=== PATIENT | female | born 1980 | race Caucasian/White ===

== ENCOUNTER 2020-10-08 07:40 | Emergency (ER) | payer OTHER ==
--- NOTE | 2020-10-08 07:47 | ERPHSYRPT ---
- History of Present Illness Time Seen by Provider: 10/08/20 07:46 Source: patient Exam Limitations: no limitations Physician History: This is a 39-year-old white female who is a smoker and presents with 5-day history of worsening cough. Patient has had diarrhea and some myalgias arthralgias. She is had no vomiting. She has no significant abdominal pain. Patient was seen at [facility] emergency department yesterday. A chest x-ray was performed and reviewed which showed some linear opacities in the bilateral lower lung barbosa. She also had a COVID-19 outpatient test performed. There is no results back at this time. She has had no fevers. Patient states that she just feels poorly overall. She was sent home with a prescription for Zithromax and prednisone and she took a single dose of each 1 of those medications prior to coming in to our facility. Timing/Duration: day(s) (5) Cough Quality/Degree: moderate Possible Cause: no prior episodes Modifying Factors: Improves With: coughing Associated Symptoms: chest pain/soreness, cough, muscle aches (From coughing), sore throat, No fever, No chills, No shortness of breath Allergies/Adverse Reactions: No Known Drug Allergies Allergy (Unverified 10/08/20 08:13) Home Medications: Azithromycin 250 mg [Zithromax 250 MG TABLET] 1 ea DAILY 10/08/20 [History] Hydrochlorothiazide 25 mg [hydroDIURIL 25 MG] 1 ea DAILY 10/08/20 [History] Losartan Potassium 50 mg [Cozaar 50 MG] 1 ea DAILY 10/08/20 [History] Methylprednisolone Packet [Medrol Dosepack] 1 ea DAILY 10/08/20 [History] Sertraline HCl 1 ea DAILY 10/08/20 [History] Travel Risk - International Travel Have you traveled outside of the country in past 3 weeks: No - Coronavirus Screening Are you exhibiting any of the following symptoms?: Yes Symptoms: Cough: New Onset, Headaches/Body Aches/Fatigue Close contact with a COVID-19 positive Pt in past 14-21 Days: No - Review of Systems Constitutional: No Symptoms Eyes: No Symptoms Ears, Nose, & Throat: No Symptoms Respiratory: Cough Cardiac: No Symptoms Abdominal/Gastrointestinal: No Symptoms Genitourinary Symptoms: No Symptoms Musculoskeletal: Arthralgias, Myalgias Skin: No Symptoms Neurological: No Symptoms Psychological: No Symptoms Endocrine: No Symptoms Hematologic/Lymphatic: No Symptoms Immunological/Allergic: No Symptoms All Other Systems: Reviewed and Negative - Past Medical History Pertinent Past Medical History: Yes - Past Surgical History Past Surgical History: Yes - Nursing Vital Signs Nursing Vital Signs: Initial Vital Signs Temperature 97.0 F 10/08/20 07:52 Pulse Rate 90 10/08/20 07:52 Respiratory Rate 18 10/08/20 07:52 Blood Pressure 151/95 10/08/20 07:52 O2 Sat by Pulse Oximetry 100 10/08/20 07:52 Pain Scale Pain Intensity 4 - Physical Exam General Appearance: mild distress, alert, anxiety Eye Exam: PERRL/EOMI, eyes nml inspection Ears, Nose, Throat Exam: normal ENT inspection, TM abnormal (L) Neck Exam: normal inspection, non-tender, supple, full range of motion Respiratory Exam: normal breath sounds, lungs clear, airway intact, No chest tenderness, No respiratory distress Cardiovascular Exam: regular rate/rhythm, normal heart sounds, normal peripheral pulses Gastrointestinal/Abdomen Exam: soft, normal bowel sounds, No tenderness Pelvic Exam: not done Rectal Exam: not done Back Exam: normal inspection, normal range of motion, No CVA tenderness, No vertebral tenderness Extremity Exam: normal inspection, normal range of motion, pelvis stable Neurologic Exam: alert, oriented x 3, cooperative, quality audit representative II-XII nml as tested, nml cerebellar function, nml station & gait, sensation nml Skin Exam: normal color, warm, dry Lymphatic Exam: No adenopathy SpO2 Interpretation: normal O2 Delivery: Room Air - Course Nursing assessment & vital signs reviewed: Yes Ordered Tests: Active Orders 24 hr Category Date Time Status EKG-ER Only STAT Care 10/08/20 08:03 Active IV Insertion STAT Care 10/08/20 08:03 Active Pulse Oximetry (ED) STAT Care 10/08/20 08:03 Active BLOOD CULTURE Stat Lab 10/08/20 07:55 Received CBC W DIFF Stat Lab 10/08/20 07:55 Completed CMP Stat Lab 10/08/20 08:30 Completed D-DIMER QUANTITATIVE Stat Lab 10/08/20 07:55 Completed INFLUENZA A+B YAJAIRA Stat Lab 10/08/20 07:55 Completed Lactic Acid Stat Lab 10/08/20 08:26 Completed NT PRO BNP Stat Lab 10/08/20 07:55 Completed TROPONIN Q3H Lab 10/08/20 07:55 Completed TROPONIN Q3H Lab 10/08/20 11:15 Ordered TROPONIN Q3H Lab 10/08/20 14:15 Ordered TROPONIN Q3H Lab 10/08/20 17:15 Ordered TROPONIN Q3H Lab 10/08/20 20:15 Ordered Respiratory MDI STAT RT 10/08/20 08:40 Active Respiratory Therapy Assessment DAILY RT 10/08/20 08:39 Active Medication Summary Discontinued Medications Generic Name Dose Route Start Last Admin Trade Name Freq PRN Reason Stop Dose Admin Hydrocodone Bitart/Acetaminophen Confirm 10/08/20 08:03 Hydrocodone-Acetamin 2.5-108/5 Ml Solution Administered 10/08/20 08:04 Dose 15 ml .ROUTE .STK-MED ONE Hydrocodone Bitart/Acetaminophen 15 ml 10/08/20 08:04 10/08/20 08:11 Hydrocodone-Acetamin 2.5-108/5 Ml Solution PO 10/08/20 08:05 15 ml STAT STA Administration Albuterol Sulfate 4 puff 10/08/20 08:38 10/08/20 08:15 Ventolin Common Canister IH 10/08/20 08:39 4 puff STAT ONE Administration Ceftriaxone Sodium/Dextrose 1 g in 50 mls @ 100 mls/hr 10/08/20 08:57 10/08/20 09:04 Rocephin 1 Gm-D5w 50 Ml Bag IV 10/08/20 09:26 200 ml/hr STAT STA 200 mls/hr Administration Ceftriaxone Sodium/Dextrose Confirm 10/08/20 09:03 Rocephin 1 Gm-D5w 50 Ml Bag Administered 10/08/20 09:04 Dose 1 g in 50 mls @ ud IV .STK-MED ONE Methylprednisolone Sodium Succinate Confirm 10/08/20 08:04 Solu-Medrol 125 Mg Administered 10/08/20 08:05 Dose 125 mg .ROUTE .STK-MED ONE Methylprednisolone Sodium Succinate 125 mg 10/08/20 08:03 10/08/20 08:11 Solu-Medrol 125 Mg IV 10/08/20 08:04 125 mg STAT ONE Administration Lab/Rad Data: Laboratory Result Diagrams 10/08/20 07:55 10/08/20 08:30 Laboratory Results 10/08/20 10/08/20 10/08/20 Range/Units 08:30 08:26 07:55 WBC (4.0-10.5) K/mm3 RBC (4.1-5.4) M/mm3 Hgb (12.0-16.0) gm/dl Hct (35-47) % MCV (78-100) fl MCH (26-32) pg MCHC (32-36) g/dl RDW (11.5-14.0) % Plt Count (150-450) K/mm3 MPV (7.5-11.0) fl Gran % (36.0-66.0) % Eos # (Auto) (0-0.5) Absolute Lymphs (auto) (1.0-4.6) Absolute Monos (auto) (0.0-1.3) Lymphocytes % (24.0-44.0) % Monocytes % (0.0-12.0) % Eosinophils % (0.00-5.0) % Basophils % (0.0-0.4) % Absolute Granulocytes (1.4-6.9) Basophils # (0-0.4) D-Dimer (215-500) ng/mL Sodium 136 L (137-145) mmol/L Potassium 3.8 (3.5-5.1) mmol/L Chloride 105 (98-107) mmol/L Carbon Dioxide 20 L (22-30) mmol/L Anion Gap 15.8 H (5-15) MEQ/L BUN 18 H (7-17) mg/dL Creatinine 0.61 (0.52-1.04) mg/dL Estimated GFR > 60.0 ML/MIN Glucose 106 (74-106) mg/dL Lactic Acid 1.5 (0.4-2.0) Calcium 10.1 (8.4-10.2) mg/dL Total Bilirubin 0.30 (0.2-1.3) mg/dL AST 36 (14-36) U/L ALT 36 H (0-35) U/L Alkaline Phosphatase 54 (38-126) U/L Troponin I < 0.012 (0.000-0.034) ng/mL NT-Pro-B Natriuret Pep (0-450) pg/mL Serum Total Protein 8.0 (6.3-8.2) g/dL Albumin 4.8 (3.5-5.0) g/dL Influenza Type A Ag (NEGATIVE) Influenza Type B Ag (NEGATIVE) 10/08/20 10/08/20 10/08/20 Range/Units 07:55 07:55 07:55 WBC (4.0-10.5) K/mm3 RBC (4.1-5.4) M/mm3 Hgb (12.0-16.0) gm/dl Hct (35-47) % MCV (78-100) fl MCH (26-32) pg MCHC (32-36) g/dl RDW (11.5-14.0) % Plt Count (150-450) K/mm3 MPV (7.5-11.0) fl Gran % (36.0-66.0) % Eos # (Auto) (0-0.5) Absolute Lymphs (auto) (1.0-4.6) Absolute Monos (auto) (0.0-1.3) Lymphocytes % (24.0-44.0) % Monocytes % (0.0-12.0) % Eosinophils % (0.00-5.0) % Basophils % (0.0-0.4) % Absolute Granulocytes (1.4-6.9) Basophils # (0-0.4) D-Dimer 320 (215-500) ng/mL Sodium (137-145) mmol/L Potassium (3.5-5.1) mmol/L Chloride (98-107) mmol/L Carbon Dioxide (22-30) mmol/L Anion Gap (5-15) MEQ/L BUN (7-17) mg/dL Creatinine (0.52-1.04) mg/dL Estimated GFR ML/MIN Glucose (74-106) mg/dL Lactic Acid (0.4-2.0) Calcium (8.4-10.2) mg/dL Total Bilirubin (0.2-1.3) mg/dL AST (14-36) U/L ALT (0-35) U/L Alkaline Phosphatase (38-126) U/L Troponin I (0.000-0.034) ng/mL NT-Pro-B Natriuret Pep 22.2 (0-450) pg/mL Serum Total Protein (6.3-8.2) g/dL Albumin (3.5-5.0) g/dL Influenza Type A Ag NEGATIVE (NEGATIVE) Influenza Type B Ag NEGATIVE (NEGATIVE) 10/08/20 Range/Units 07:55 WBC 10.4 (4.0-10.5) K/mm3 RBC 5.08 (4.1-5.4) M/mm3 Hgb 13.8 (12.0-16.0) gm/dl Hct 42.6 (35-47) % MCV 83.9 (78-100) fl MCH 27.2 (26-32) pg MCHC 32.4 (32-36) g/dl RDW 13.4 (11.5-14.0) % Plt Count 215 (150-450) K/mm3 MPV 11.8 H (7.5-11.0) fl Gran % 69.5 H (36.0-66.0) % Eos # (Auto) 0.22 (0-0.5) Absolute Lymphs (auto) 2.05 (1.0-4.6) Absolute Monos (auto) 0.86 (0.0-1.3) Lymphocytes % 19.8 L (24.0-44.0) % Monocytes % 8.3 (0.0-12.0) % Eosinophils % 2.1 (0.00-5.0) % Basophils % 0.3 (0.0-0.4) % Absolute Granulocytes 7.21 H (1.4-6.9) Basophils # 0.03 (0-0.4) D-Dimer (215-500) ng/mL Sodium (137-145) mmol/L Potassium (3.5-5.1) mmol/L Chloride (98-107) mmol/L Carbon Dioxide (22-30) mmol/L Anion Gap (5-15) MEQ/L BUN (7-17) mg/dL Creatinine (0.52-1.04) mg/dL Estimated GFR ML/MIN Glucose (74-106) mg/dL Lactic Acid (0.4-2.0) Calcium (8.4-10.2) mg/dL Total Bilirubin (0.2-1.3) mg/dL AST (14-36) U/L ALT (0-35) U/L Alkaline Phosphatase (38-126) U/L Troponin I (0.000-0.034) ng/mL NT-Pro-B Natriuret Pep (0-450) pg/mL Serum Total Protein (6.3-8.2) g/dL Albumin (3.5-5.0) g/dL Influenza Type A Ag (NEGATIVE) Influenza Type B Ag (NEGATIVE) - Progress Progress: improved, re-examined Air Movement: good Progress Note: 10/08/20 09:19 Patient states that she is feeling better. Medical decision making: This patient presents with cough. She is feeling better with an intravenous bolus of Solu-Medrol, Ventolin inhaler treatment and intravenous antibiotic of Rocephin. In addition, the patient received hydrocodone elixir for her cough. She is oxygenating, on room air, 98 to 100%. Her vital signs are stable. Patient is afebrile. Her D-dimer is normal as is her BNP and troponin level. She will be discharged home with instructions to continue her methylprednisolone and Zithromax antibiotic prescription. We will add a Ventolin inhaler prescription as well as a prescription for hydrocodone elixir. Patient agrees with this plan. Blood Culture(s) Obtained: Yes Antibiotics given: Yes Counseled pt/family regarding: lab results, diagnosis, need for follow-up - Departure Departure Disposition: Home Clinical Impression: Infiltrate of lung present on chest x-ray Condition: Stable Critical Care Time: No Referrals: MELVA NG BLOCK TRIMMER [Primary Care Provider] - Additional Instructions: Drink plenty fluids. Avoid cigarette smoke and any kind of smoke inhalation. Continue your Zithromax and steroid treatment. Obtain your prescriptions for a Ventolin inhaler and hydrocodone cough medicine. Continue quarantining yourself until you receive the results of your COVID-19 test. Return to the emergency department if your symptoms worsen. Follow-up with your primary care physician as needed Prescriptions: Hydrocodone/Acetaminophen [Hydrocodone-Acetamn 7.5-325/15] 10 ml PO Q8H PRN PRN #120 solution MDD 30 ml PRN Reason: Cough Albuterol 8 gm Mdi Hfa [Ventolin Hfa MDI] 8 gm IH Q4H #1 [email or web address]
[2020-10-08] MEDS ORDERED: HYDROCODONE-ACETAMIN 2.5-108/5 ML SOLUTION ONE (08:03)
[2020-10-08] MEDS ORDERED: solu-MEDROL 125 MG IV ONE (08:03)
[2020-10-08] MEDS ORDERED: HYDROCODONE-ACETAMIN 2.5-108/5 ML SOLUTION PO STA (08:04)
[2020-10-08] MEDS ORDERED: solu-MEDROL 125 MG ONE (08:04)
[2020-10-08] MEDS ORDERED: VENTOLIN COMMON CANISTER IH ONE (08:38)
[2020-10-08 08:39] LABS: Absolute Neutrophil Ct (ANC) 7.21 (1.4-6.9); BASOPHIL % 0.3 % (0.0-0.4); Basophil (Absolute #) 0.03 (0-0.4); Eosinophil % 2.1 % (0.00-5.0); Eosinophil (Absolute #) 0.22 (0-0.5); Hematocrit 42.6 % (35-47); Hemoglobin 13.8 gm/dl (12.0-16.0); Lymphocyte (Absolute #) 2.05 (1.0-4.6); Lymphocytes % 19.8 % (24.0-44.0); Mean Cell Volume 83.9 fl (78-100); Mean Corpuscular Hemoglobin 27.2 pg (26-32); Mean Corpuscular Hgb Concent. 32.4 g/dl (32-36); Mean Platelet Volume 11.8 fl (7.5-11.0); Monocyte (Absolute #) 0.86 (0.0-1.3); Monocytes % 8.3 % (0.0-12.0); Neutrophil % 69.5 % (36.0-66.0); Platelet Count 215 K/mm3 (150-450); Red Blood Count 5.08 M/mm3 (4.1-5.4); Red Cell Distribution Width 13.4 % (11.5-14.0); White Blood Count 10.4 K/mm3 (4.0-10.5)
[2020-10-08 08:50] LABS: INFLUENZA A NEGATIVE (NEGATIVE); INFLUENZA B NEGATIVE (NEGATIVE)
[2020-10-08] MEDS ORDERED: ROCEPHIN 1 Gm-D5w 50 ml Bag** 1 G/50 ML IVPB IV STA (08:57)
[2020-10-08] MEDS ORDERED: ROCEPHIN 1 Gm-D5w 50 ml Bag** 1 G/50 ML IVPB IV ONE (09:03)
[2020-10-08 09:13] VITALS: BP 130/79; PULSE 65; O2SAT 96
[2020-10-08 09:13] LABS: ALBUMIN 4.8 g/dL (3.5-5.0); ALKALINE PHOSPHATASE 54 U/L (38-126); ANION GAP 15.8 MEQ/L (5-15); BLOOD UREA NITROGEN 18 mg/dL (7-17); CHLORIDE 105 mmol/L (98-107); Calcium 10.1 mg/dL (8.4-10.2); Carbon Dioxide 20 mmol/L (22-30); Creatinine 1 0.61 mg/dL (0.52-1.04); EST GLOMERULAR FILTRATION RATE > 60.0 ML/MIN; Glucose 106 mg/dL (74-106); Potassium 3.8 mmol/L (3.5-5.1); SGOT/AST 36 U/L (14-36); SGPT/ALT 36 U/L (0-35); SODIUM 136 mmol/L (137-145)
== END 2020-10-08 09:52 | disposition home or self-care (01) ==
LOC: ED 07:40
DX: R91.8 Other nonspecific abnormal finding of lung field (principal); R05 Cough; M79.18 Myalgia, other site; J02.9 Acute pharyngitis, unspecified; Z79.899 Other long term (current) drug therapy
CPT/HCPCS: 36000; 36415; 80053; 83605; 83880; 84484; 85025; 85379; 87040; 87400; 93005; 94640; 94760; 96365; 96374; 99284; J0696; J2930; A9270-GY